=== PATIENT | female | born 1985 | race Caucasian/White ===

== ENCOUNTER 2016-07-17 18:17 | Emergency (ER) | payer BC, OTHER ==
--- NOTE | 2016-07-17 18:36 | EDPRACDOC ---
- General Information Stated Complaint: SORE THROAT Time Seen by Provider: 07/17/16 18:29 Home Medications: Home Medications Ketorolac Tromethamine 10 mg PO Q8H PRN #15 tab 09/26/15 Promethazine Dextromethorphan [Phenergan DM] 5 ml PO Q4H PRN #120 ml 09/26/15 Ibuprofen 600 mg PO TID #20 tablet 07/17/16 Pseudoephedrine [Sudafed] 120 mg PO BID #7 days 07/17/16 Allergies/Adverse Reactions: Allergies Allergy/AdvReac Type Severity Reaction Status Date / Time codeine [Codeine] Allergy Severe SEIZURE,COM Verified 09/26/15 09:00 A - History of Present Illness Onset: LAST NIGHT HPI: PT PRESENTS TODAY WITH URI SYMPTOMS INCLUDING COUGH, NASAL CONGESTION AND SORE THROAT. DENIES FEVER, LANE, NECK PAIN, CP, SHOB, ABD PAIN, N/V/D. NO PMH/MEDS/ SBI. NO DISTRESS. Current Symptoms: Reports: Cough, Nasal Symptoms, Sore Throat Shortness of Breath: None Cough: Reports: Non-productive Rhinorrhea: Reports: Clear Ear Symptoms: Reports: None Fever Severity/Quality: Reports: no fever Oral Intake: Normal Urinary Output: Normal Relevant History of: None Associated Signs & Symptoms:: Reports: Cough, Nasal Symptoms, Sore Throat ED Past Medical History - History Reviewed Yes Nurses notes reviewed and agree except as marked - Patient Medical History Psychological History: Reports: Anxiety Systemic History: Denies: Cancer, Anemia, Lupus Surgical History: Reports: Cholecystectomy - Family Medical History Reports: Hypertension (PARENTS,GRANDPARENTS), Diabetes (EVERY ONE), Cancer (DAD) . Denies: Stroke, Cardiac Disorders - Social Medical History Smoking Status: Never smoker EDM Review of Systems - Review of Systems ROS Negative Except as Marked: Yes All systems reviewed and were negative except as marked Constitutional: Fatigue Eyes: No Symptoms Reported Ears: No Symptoms Reported Throat: Pain Nose: Congestion Respiratory: Cough Cardiovascular: No Symptoms Reported Gastrointestinal: No Symptoms Reported Neurological: No Symptoms Reported Musculoskeletal: No Symptoms Reported Integumentary: No Symptoms Reported - Physical Exam Constitutional: Alert (Awake), No apparent distress Oriented to: Time, Person, Place Last recorded Vital Signs: Oxygen Pulse Oxygen Saturation O2 Device Oxygen Flow Rate Fraction of Inspired Oxygen ( FIO2) - HEENT Head: Normal Eye Exam: Normal Oropharynx: Normal Tympanic Membrane: Normal ENT EAC: Normal Nose: Congestion Neck: Normal, Denies Pain, Midline - Respiratory/Cardiovascular Respiratory: Normal - CTA Cardiovascular: Normal - GI Palpation: Normal Tenderness: Non tender - Musculoskeletal Back: Normal Extremities: Normal - Integumentary Skin: Normal Lymphatics: Normal - Neurologic Cerebellar: Normal Mood Description: Normal Thought: Coherent Perception: Normal Decision Time to Discharge: 18:35 - Departure Disposition: Home Condition: Good Final Diagnosis: Upper respiratory infection Qualifiers: URI type: unspecified URI Qualified Code(s): J06.9 - Acute upper respiratory infection, unspecified Instructions: Upper Respiratory Infection (ED) Education/Counseling Given To: Patient Education/Counseling Given Regarding: Diagnosis, Treatment, Follow Up Referrals: Leanne Cross NP [Primary Care Provider] - One Week Prescriptions: New Ibuprofen 600 mg PO TID #20 tablet Pseudoephedrine [Sudafed] 120 mg PO BID #7 days No Action Promethazine Dextromethorphan [Phenergan DM] 5 ml PO Q4H PRN #120 ml PRN Reason: Cough Ketorolac Tromethamine 10 mg PO Q8H PRN #15 tab PRN Reason: Pain Forms: Excuse Note Additional Instructions: REST AND PLENTY OF FLUIDS. FOLLOW UP WITH PCP IN 2-3 DAYS IF NEEDED.
[2016-07-17 18:39] VITALS: BP 114/70; PULSE 81; TEMP 98.6; BMI 34.7
== END 2016-07-17 18:43 | disposition home or self-care (01) ==
LOC: EDMC 18:17
DX: J06.9 Acute upper respiratory infection, unspecified (principal)
CPT/HCPCS: 99282